=== PATIENT | female | born 1985 | race American Indian/Alaskan Native ===

== ENCOUNTER 2020-02-05 11:40 | Emergency (ER) | payer SELFPAY ==
--- NOTE | 2020-02-05 13:22 | Event Note ---
ED Screening Note Date of service: 02/05/20 Time: 13:10 ED Screening Note: 4-year-old -[place] female presents to the emergency room for chest pain chest tightness shortness of breath that started about 9 AM this morning. Patient denies any past medical history. Admits to vomiting. This initial assessment/diagnostic orders/clinical plan/treatment(s) is/are subject to change based on patients health status, clinical progression and re- assessment by fellow clinical providers in the ED. Further treatment and workup at subsequent clinical providers discretion. Patient/guardian urged not to elope from the ED as their condition may be serious if not clinically assessed and managed. Initial orders include:
--- NOTE | 2020-02-05 14:28 | XRay Report ---
XR chest routine 2V INDICATION / CLINICAL INFORMATION: sob,cough and rales. COMPARISON: None available. FINDINGS: SUPPORT DEVICES: None. HEART /PULMONARY VASCULATURE: No significant abnormality. LUNGS / PLEURA: No significant pulmonary or pleural abnormality. No pneumothorax. ADDITIONAL FINDINGS: No significant additional findings. IMPRESSION: 1. No acute findings. Signer Name: Fortino Plascencia MD Signed: 02/05/2020 2:24 PM Workstation Name: [id number]
[2020-02-05 14:38] LABS: Basophils % (Auto) 0.4 % (0.0-1.8); Eosinophils % (Auto) 0.1 % (0.0-4.3); Hematocrit 37.2 % (30.3-42.9); Hemoglobin 12.5 gm/dl (10.1-14.3); Lymphocytes # (Auto) 1.6 K/mm3 (1.2-5.4); Lymphocytes % (Auto) 12.8 % (13.4-35.0); Mean Corpuscular HGB Conc 34 % (30-34); Mean Corpuscular Volume 93 fl (79-97); Monocytes % (Auto) 7.7 % (0.0-7.3); Platelet Count 319 K/mm3 (140-440); Red Blood Count 3.99 M/mm3 (3.65-5.03); Red Cell Distribution Width 13.1 % (13.2-15.2)
[2020-02-05 14:56] LABS: BUN/Creatinine Ratio 8; Blood Urea Nitrogen 6 mg/dL (7-17); Calcium 9.4 mg/dL (8.4-10.2); Hemolysis Index 2
[2020-02-05] MEDS ORDERED: ONDANSETRON 4 MG ODT TAB PO ONE (15:40)
[2020-02-05] MEDS ORDERED: HYDROcodone/ACETAMINOPHEN 5-325 MG TAB PO ONE (15:40)
[2020-02-05] MEDS ORDERED: IPRATROPIUM/ALBUTEROL SULFATE 3 ML AMPUL.NEB IH ONE (15:40)
[2020-02-05] MEDS ORDERED: predniSONE 20 MG TAB PO ONE (15:41)
[2020-02-05] MEDS ORDERED: AZITHROMYCIN 250 MG TAB PO ONE (15:41)
[2020-02-05 16:03] LABS: Alanine Aminotransferase 13 units/L (7-56); Albumin 4.3 g/dL (3.9-5)
--- NOTE | 2020-02-05 17:38 | Cat Scan Report ---
CTA CHEST WITH CONTRAST INDICATION / CLINICAL INFORMATION: Chest pain, tachycardia. TECHNIQUE: Axial CT images were obtained through the chest after injection of IV contrast. 3 plane AL P and/or 3D reconstructions were produced. All CT scans at this location are performed using CT dose reduction for ALARA by means of automated exposure control. COMPARISON: None available. FINDINGS: PULMONARY ARTERIES: No central or segmental pulmonary embolus. THORACIC AORTA: No significant abnormality. HEART: No significant abnormality. ADENOPATHY: No significant adenopathy. LUNGS/PLEURA: No focal airspace consolidation. No pleural effusion. No pneumothorax. ADDITIONAL FINDINGS: None. UPPER ABDOMEN: No acute findings. SKELETAL STRUCTURES: No significant osseous abnormality. IMPRESSION: No acute findings of the chest. No evidence of pulmonary embolus. Signer Name: Fortino Plascencia MD Signed: 02/05/2020 5:34 PM Workstation Name: [id number]
--- NOTE | 2020-02-05 18:18 | Emergency Department Report ---
ED Chest Pain HPI - General Chief Complaint: Chest Pain Stated Complaint: CHEST PAIN/OKSANA PUI?: No Time Seen by Provider: 02/05/20 15:27 Source: patient Mode of arrival: Ambulatory Limitations: No Limitations - History of Present Illness Initial Comments: Chief complaint: "My chest really hurt." HPI: This is a 34-year-old female who presents with chest pain shortness of breath since this morning. Three weeks ago patient was diagnosed with COVID-19 infection. She had mild congestion and fatigue at that time. She had a full recovery was able to return to work. This morning she had rapid heartbeat. Her heart felt full heavy. Heaviness in the middle chest with shortness of breath. She denies cough, fever, abdominal pain. She admits to using ecstasy 2 days ago Saturday night. She did not have symptoms after ingesting ecstasy. She smoked marijuana "all her life". She stopped using marijuana when she was diagnosed with COVID-19 infection 3 weeks ago. She recently started smoking cigarettes "in full force". She is now smoking at least a pack a day. MD Complaint: chest pain -: Gradual, This morning Onset: during rest Pain Location: substernal Pain Radiation: none Severity: severe Severity scale (0 -10): 10 Quality: tightness, heaviness Consistency: now resolved Improves With: nothing Worsens With: nothing Treatments Prior to Arrival: none - Related Data Previous Rx's Medication Instructions Recorded Last Taken Type Albuterol Mdi (or & Nicu Only) 2 puff IH QID PRN #8.5 gram 02/05/20 Unknown Rx [ProAir HFA Inhaler] Azithromycin [Zithromax] 250 mg PO DAILY 4 Days #4 tablet 02/05/20 Unknown Rx Prednisone [predniSONE 10 mg 10 mg PO .TAPER #1 tab.ds.pk 02/05/20 Unknown Rx (6-Day Pack, 21 Tabs)] Allergies Allergy/AdvReac Type Severity Reaction Status Date / Time No Known Allergies Allergy Unverified 02/05/20 11:41 Heart Score - HEART Score History: Slightly suspicious EKG: Normal Age: < 45 Risk factors: No known risk factors Troponin: < normal limit HEART Score: 0 ED Review of Systems ROS: Stated complaint: CHEST PAIN/OKSANA Other details as noted in HPI Comment: All other systems reviewed and negative Constitutional: denies: fever, malaise Respiratory: shortness of breath. denies: wheezing Cardiovascular: chest pain ED Past Medical Hx - Past Medical History Previous Medical History?: No - Surgical History Past Surgical History?: No - Medications Home Medications: Home Medications Medication Instructions Recorded Confirmed Last Taken Type Albuterol Mdi (or & Nicu Only) 2 puff IH QID PRN #8.5 gram 02/05/20 Unknown Rx [ProAir HFA Inhaler] Azithromycin [Zithromax] 250 mg PO DAILY 4 Days #4 tablet 02/05/20 Unknown Rx Prednisone [predniSONE 10 mg 10 mg PO .TAPER #1 tab.ds.pk 02/05/20 Unknown Rx (6-Day Pack, 21 Tabs)] ED Physical Exam - General Limitations: No Limitations General appearance: alert, in no apparent distress - Head Head exam: Present: atraumatic, normocephalic - Eye Eye exam: Present: normal appearance - ENT ENT exam: Present: mucous membranes moist - Neck Neck exam: Present: normal inspection, full ROM - Respiratory Respiratory exam: Present: normal lung sounds bilaterally. Absent: respiratory distress, wheezes, rales, rhonchi - Cardiovascular Cardiovascular Exam: Present: regular rate, normal rhythm, normal heart sounds. Absent: systolic murmur, diastolic murmur, rubs, gallop - GI/Abdominal GI/Abdominal exam: Present: soft, normal bowel sounds. Absent: distended, tenderness, guarding, rebound - Extremities Exam Extremities exam: Present: normal inspection - Neurological Exam Neurological exam: Present: alert, oriented X3 - Psychiatric Psychiatric exam: Present: normal affect, normal mood - Skin Skin exam: Present: warm, dry, intact, normal color. Absent: rash ED Course Vital Signs 02/05/20 02/05/20 11:42 15:41 Temperature 98.0 F Pulse Rate 133 H Respiratory 23 18 Rate Blood Pressure 143/92 O2 Sat by Pulse 100 98 Oximetry ED Medical Decision Making - Lab Data Result diagrams: 02/05/20 14:17 02/05/20 14:17 Laboratory Results - last 24 hr 02/05/20 02/05/20 14:17 14:17 WBC 12.6 H RBC 3.99 Hgb 12.5 Hct 37.2 MCV 93 MCH 31 MCHC 34 RDW 13.1 L Plt Count 319 Lymph % (Auto) 12.8 L [place] % (Auto) 7.7 H Eos % (Auto) 0.1 Baso % (Auto) 0.4 Lymph # (Auto) 1.6 [place] # (Auto) 1.0 H Eos # (Auto) 0.0 Baso # (Auto) 0.0 Seg Neutrophils % 79.0 H Seg Neutrophils # 9.9 H Sodium 138 Potassium 3.8 Chloride 103.8 Carbon Dioxide 26 Anion Gap 12 BUN 6 L Creatinine 0.8 Estimated GFR > 60 BUN/Creatinine Ratio 8 Glucose 144 H Calcium 9.4 Total Bilirubin 0.50 AST 21 ALT 13 Alkaline Phosphatase 69 Troponin T < 0.010 Total Protein 7.5 Albumin 4.3 Albumin/Globulin Ratio 1.3 - EKG Data -: EKG Interpreted by Ri EKG shows normal: sinus rhythm, axis, intervals, QRS complexes, ST-T waves Rate: normal, tachycardia - EKG Data Interpretation: normal EKG (With exception of tachycardia) 02/05/20 18:15 EKG obtained 1146 EKG interpreted by mn Sinus tachycardia rate 120 bpm normal axis normal intervals no ST-T signs of ischemia - Radiology Data Radiology results: report reviewed Chest radiograph: No acute findings according to radiology interpretation CT angio chest: No acute findings according to radiology interpretation - Medical Decision Making This is 34-year-old female with history of ecstasy and tobacco use who presents with severe chest pain shortness of breath. No evidence of pulmonary embolism, pneumonia, pneumothorax. Due to severe tachycardia obtained at triage, extensive evaluation warranted. I suspect acute bronchitis with history of tobacco abuse. Patient improved with DuoNeb and prednisone in emergency department. I have prescribed albuterol MDI, azithromycin and prednisone. I strongly urged tobacco cessation. Critical care attestation.: If time is entered above; I have spent that time in minutes in the direct care of this critically ill patient, excluding procedure time. ED Disposition Clinical Impression: Acute bronchitis, Chest pain, Shortness of breath Disposition: -01 TO HOME OR SELFCARE Is pt being admited?: No Does the pt Need Aspirin: No Condition: Stable Instructions: Acute Bronchitis (ED), Chest Pain (ED), Shortness of Breath, Adult, [id number], Nonspecific Chest Pain, Adult, [id number], Acute Bronchitis, Adult, [id number] Prescriptions: Prednisone [predniSONE 10 mg (6-Day Pack, 21 Tabs)] 10 mg PO .TAPER #1 tab.ds.pk Albuterol Mdi (or & Nicu Only) [ProAir HFA Inhaler] 2 puff IH QID PRN #8.5 gram PRN Reason: Shortness Of Breath Azithromycin [Zithromax] 250 mg PO DAILY 4 Days #4 tablet Referrals: MONTY GAMEZ MD [Staff Physician] - 3-5 Days Forms: Work/School Release Form(ED)
[2020-02-05 18:33] VITALS: BP 122/83
== END 2020-02-05 18:34 | disposition home or self-care (01) ==
LOC: ED 11:40
DX: J20.9 Acute bronchitis, unspecified (principal); R07.89 Other chest pain; R06.02 Shortness of breath
CPT/HCPCS: 36415; 71046; 71275; 80053; 84484; 85025; 93005; 99284; J7512; Q9967; Q0162